=== PATIENT | male | born 1950 | race Caucasian/White ===

== ENCOUNTER 2016-06-30 14:20 | Outpatient (CLI) ==
--- NOTE | 2016-06-30 14:53 | DI ---
EXAM: Three x-rays of the lumbar spine. Comparison: None available. Reason for exam: Back pain. FINDINGS: No acute fracture. The vertebral body heights are relatively well maintained. There is multilevel degenerative disease seen with anterior osteophyte formation and facet hypertrophy. Ther e is a grade 1 retrolithesis of L5 on S1. Impression: Multilevel degenerative disc disease with grade 1 retrolithesis of L5 on S1 and osteophyte formation with facet hypertrophy. No obvious fracture. If clinical suspicion is high, CT imaging may be perf ormed.
== END 2016-06-30 14:21 | disposition home or self-care (01) ==
LOC: RAD 14:20
PROVIDERS: ATTEND Internal Medicine
DX: M54.5 Low back pain (principal)

== ENCOUNTER 2017-01-30 05:38 | Emergency (ER) ==
[2017-01-30 05:57] VITALS: BP 156/90; TEMP 98.8; BMI 37.0
--- NOTE | 2017-01-30 06:38 | ED.PDOC ---
General <PAGE HOSPITALKULDEEP - Last Filed: 01/30/17 07:47> Stated Complaint: Patient has problems with constipation on and off for long time, last week had similar episode, Dr camp, told him to take mag citrate, which did help him. now patient has constipation again. has problems with bowels for the long time, per patient he was started doxepen for that in [place]. Time Seen by Physician: 06:34 Mode of Arrival: Walk-In Information Source: Patient, Family Nursing and Triage Documentation Reviewed and Agree: Yes <ARLEEN WANG - Last Filed: 02/06/17 19:58> ED Provider: Dr. ARLEEN WANG Chief Complaint: Abdominal Pain Primary Care Provider: JODY CAMP GI Complaint Exam - Abdominal Pain Complaint/Exam Onset: Gradual Symptoms Are: Still present Timing: Constant Initial Severity: Mild Current Severity: Mild Location of Pain: Diffuse Character: Reports: Dull, Aching Aggravating: Reports: None Alleviating: Reports: None Associated Signs and Symptoms: Reports: Constipation. Denies: Diaphoresis, Fever, Cough, Chest pain, Dizziness, Back pain, Blood in stool, Dysuria, Urinary frequency, Decreased urine output, Decreased appetite, Discharge, Nausea , Vomiting, Diarrhea, Decreased activity AAA Risk Factors: Reports: None Cardiac Risk Factors: Reports: None Testicular Torsion Risk Factors: Reports: None Surgical Obstruction Risk Factors: Reports: None Abdominal Findings: Absent: Pulsatile mass, Abdominal distention, Unequal femoral pulses, Rebound tenderness Differential Diagnoses: Bowel Obstruction, Constipation, Diverticulitis <ARLEEN WANG - Last Filed: 02/06/17 19:58> Review of Systems - Review Of Systems Constitutional: Reports: No symptoms Eyes: Reports: No symptoms Ears, Nose, Mouth, Throat: Reports: No symptoms Respiratory: Reports: No symptoms Cardiac: Reports: No symptoms GI: Reports: Constipated : Reports: No symptoms Musculoskeletal: Reports: No symptoms Skin: Reports: No symptoms Neurological: Reports: No symptoms Endocrine: Reports: No symptoms Hematologic/Lymphatic: Reports: No symptoms All Other Systems: Reviewed and Negative <ARLEEN WANG - Last Filed: 02/06/17 19:58> Past Medical History - Past Medical History Previously Healthy: Yes Endocrine: Reports: DM 2 Cardiovascular: Reports: Hypertension Respiratory: Reports: None Hematological: Reports: Other (constipation) Gastrointestinal: Reports: None Genitourinary: Reports: None Neuro/Psych: Reports: None Musculoskeletal: Reports: None Cancer: Reports: None - Surgical History General Surgical History: Reports: None - Family History Family History: Reports: None - Social History Smoking Status: Former smoker Hx Substance Use: No Alcohol Screening: Occasionally - Immunizations Tetanus Shot up to Date: No (unsure) <ARLEEN WANG - Last Filed: 02/06/17 19:58> Physical Exam - Physical Exam Appearance: Well-appearing, Obese Eyes: JULEE, EOMI, Conjunctiva clear ENT: Ears normal, Nose normal, Oropharynx normal Respiratory: Airway patent, Breath sounds clear, Breath sounds equal, Respirations nonlabored Cardiovascular: RRR, Pulses normal, No rub, No murmur GI/: Soft, No masses, Bowel sounds normal, No Organomegaly, Tender ( discomfort.) Musculoskeletal: Normal strength, ROM intact, No edema, No calf tenderness Skin: Warm, Dry, Normal color Neurological: Sensation intact, Motor intact, Reflexes intact, Cranial nerves intact, Alert, Oriented Psychiatric: Affect appropriate, Mood appropriate <ARLEEN WANG - Last Filed: 02/06/17 19:58> Physician Notification - Case Discussed Physician Notified: dr camp Time of Notification: 07:47 <KULDEEP XIAO - Last Filed: 01/30/17 07:47> Critical Care Note - Critical Care Note Total Time (mins): 30 <ARLEEN WANG - Last Filed: 02/06/17 19:58> Course - Course Hematology/Chemistry: 01/30/17 06:43 01/30/17 06:43 <KULDEEP XIAO - Last Filed: 01/30/17 07:47> - Course Hematology/Chemistry: 01/30/17 06:43 01/30/17 06:43 <ARLEEN WANG - Last Filed: 02/06/17 19:58> - Course Orders, Labs, Meds: Lab Review 01/30/17 01/30/17 01/30/17 06:43 06:43 07:06 WBC 10.71 H RBC 5.01 Hgb 15.5 Hct 44.3 MCV 88.4 MCH 30.9 MCHC 35.0 RDW Coeff of Mckayla 12.0 Plt Count 220 Immature Gran % (Auto) 0.6 Neut % (Auto) 79.4 Lymph % (Auto) 9.3 L [place] % (Auto) 7.2 Eos % (Auto) 3.0 Baso % (Auto) 0.5 Immature Gran # (Auto) 0.1 Neut # 8.5 H Lymph # 1.0 [place] # 0.8 Eos # 0.3 Baso # 0.1 Sodium 136 Potassium 5.9 H Chloride 102 Carbon Dioxide 26 Anion Gap 13.9 BUN 22 H Creatinine 0.93 Estimated GFR (MDRD) 82.00 BUN/Creatinine Ratio 23.65 Glucose 223 H Calcium 10.3 H Total Bilirubin 0.31 AST 13 L ALT 13 Alkaline Phosphatase 96 Total Protein 7.2 Albumin 2.9 L Globulin 4.3 Albumin/Globulin Ratio 0.67 Urine Color Yellow Urine Clarity Clear Urine pH 5.5 Ur Specific [place] 1.025 Urine Protein Negative Urine Glucose (UA) Trace Urine Ketones Negative Urine Blood Negative Urine Nitrite Negative Urine Bilirubin Negative Urine Urobilinogen 0.2 Ur Leukocyte Esterase Negative Orders Category Date Time Status TRANSFER TO OUTSIDE FACILITY .TO PSYCHIATRIC ( CARE 01/30/17 07:48 Active [facility]) WRITE TRANSFER/SBAR NOTE ONCE CARE 01/30/17 07:48 Completed DISCHARGE ASSESSMENT ONCE DISCHARGE 01/30/17 07:48 Completed WRITE DISCHARGE NOTE ONCE DISCHARGE 01/30/17 07:48 Completed IV [ED IV/MEDIPORT/POWERPORT] .ONCE EMERGENCY 01/30/17 07:42 Active CBC W/ AUTO DIFF Stat LAB 01/30/17 06:43 Completed COMPREHENSIVE METABOLIC PANEL Stat LAB 01/30/17 06:43 Completed UA [URINALYSIS C & S IF INDICATED] Stat LAB 01/30/17 07:06 Completed 0.9 % Sodium Chloride [Saline Flush] MEDS 01/30/17 07:42 Discontinued 1 syr IVF PRN PRN Magnesium Citrate [Citrate of Magnesia] MEDS 01/30/17 06:43 Discontinued 10 oz PO ONCE STA Morphine Sulfate [Morphine 2 mg/ml Syringe] MEDS 01/30/17 07:43 Discontinued 2 mg IVP ONCE STA Sodium Chloride 0.9% [Sodium Chloride] 1,000 ml MEDS 01/30/17 07:42 Discontinued IV 100 mls/hr CT ABDOMEN/PELVIS WO CONTRAST Stat RADS 01/30/17 06:33 Completed Medications Discontinued Medications Generic Name Dose Route Start Last Admin Trade Name Jitendra PRN Reason Stop Dose Admin Sodium Chloride 1,000 mls @ 100 mls/hr 01/30/17 07:42 01/30/17 08:07 Sodium Chloride IV 01/30/17 17:41 100 mls/hr .Q10H STA Administration Magnesium Citrate 10 oz 01/30/17 06:43 01/30/17 07:18 Citrate Of Magnesia PO 01/30/17 06:44 10 oz ONCE STA Administration Morphine Sulfate 2 mg 01/30/17 07:43 01/30/17 08:11 Morphine 2 Mg/Ml Syringe IVP 01/30/17 07:44 2 mg ONCE STA Administration Sodium Chloride 1 syr 01/30/17 07:42 01/30/17 08:07 Saline Flush IVF 1 syr PRN PRN Administration To flush IV Vital Signs: Temp Pulse Resp BP Pulse Ox 01/30/17 05:39 98.8 F 57 L 18 156/90 H 97 Departure - Departure Transfer Form Completed: Yes Disposition Discussed With: Patient, Family <SHILAKULDEEP ROMERO - Last Filed: 01/30/17 07:47> - Departure Time of Disposition: 20:00 Pt referred to PMD for follow-up: Yes Disposition Discussed With: Patient <ARLEEN WANG - Last Filed: 02/06/17 19:58> - Departure Disposition: [facility] Discharge Problem: Abdominal pain, Hyperkalemia Constipation Qualifiers: Constipation type: chronic idiopathic constipation Qualified Code(s): K59.04 - Chronic idiopathic constipation Cholelithiasis Qualifiers: Cholelithiasis location: gallbladder Cholecystitis presence: without cholecystitis Biliary obstruction: without biliary obstruction Qualified Code(s) : K80.20 - Calculus of gallbladder without cholecystitis without obstruction Instructions: Constipation (ED), High Fiber Diet (ED) Condition: Good Additional Instructions: Increase hydration HIgh Fibre diet. f/u with PMD Allergies/Adverse Reactions: Allergies No Known Allergies Allergy (Unverified 01/30/17 05:51) Home Medications: Ambulatory Orders Aspirin [Aspirin EC] 81 mg PO DAILY 01/30/17 Doxepin HCl [Sinequan] 25 mg PO TID 01/30/17 Lisinopril 10 mg PO DAILY 11/11/17 Metformin HCl [Glucophage] 1,000 mg PO DAILY 01/30/17 Metoprolol Tartrate 25 mg PO BID 01/30/17 Pravastatin Sodium 10 mg PO DAILY 01/30/17 Trospium Chloride 20 mg PO BID 01/30/17
[2017-01-30] MEDS ORDERED: CITRATE OF MAGNESIA PO STA (06:43)
[2017-01-30 06:48] LABS: BASOPHILS # (AUTO) 0.1 K/uL (0-0.2); BASOPHILS % (AUTO) 0.5 % (0.0-3.0); EOSINOPHILS # (AUTO) 0.3 K/ul (0.0-0.7); HEMATOCRIT 44.3 % (42.0-52.0); HEMOGLOBIN 15.5 g/dl (14.0-18.0); IMMATURE GRANULOCYTE % (AUTO) 0.6 % (0.0-5.0); LYMPHOCYTES % (AUTO) 9.3 (10.0-50.0); MEAN CORPUSCULAR HEMOGLOBIN 30.9 pg (27.0-31.0); MEAN CORPUSCULAR VOLUME 88.4 fl (80.0-94.0); MONOCYTES # (AUTO) 0.8 K/uL (0.4-2.0); MONOCYTES % (AUTO) 7.2 (0-10); NEUTROPHILS # (AUTO) 8.5 K/ul (2.0-6.9); NEUTROPHILS % (AUTO) 79.4; PLATELET COUNT 220 10^3/uL (140-440); RED BLOOD COUNT 5.01 10^6/ul (4.70-6.10); WHITE BLOOD COUNT 10.71 K/ul (4.2-10.2)
[2017-01-30 07:07] LABS: ALBUMIN 2.9 g/dL (3.4-5.0); ALBUMIN/GLOBULIN RATIO 0.67; ANION GAP 13.9; BILIRUBIN,TOTAL 0.31 mg/dL (0.00-1.20); BUN/CREATININE RATIO 23.65; CALCIUM 10.3 mg/dL (8.2-10.2); CREATININE 0.93 mg/dL (0.60-1.10); POTASSIUM 5.9 mmol/L (3.5-5.1); TOTAL PROTEIN 7.2 g/dL (5.8-8.1)
--- NOTE | 2017-01-30 07:20 | CT ---
EXAM: CT ABDOMEN AND PELVIS HISTORY: Constipation TECHNIQUE: CT abdomen and pelvis without intravenous contrast. Images were reconstructed using 3 mm section thickness. Reformations were prepared. COMPARISON: None FINDINGS: Diagnostic limitations exist without including contrast enhanced images. Liver is within normal limi ts. There is no intrahepatic biliary dilatation. Spleen unremarkable. Gallbladder is mildly disten ded. Several small gallstones are noted. There is a focal 0.45 cm density over the distal aspect of the common bile duct possibly representing a lower common bile duct calculus. No common bile duct d ilatation is seen. 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 Minimal atherosclerotic disease. Moderate fecal retention in the cecum. Otherwise no excessive retention is identified and the bowel gas pattern is normal. Urinary bladder and prostate are normal. There is no ascites. There is a fatty umbilical hernia with a transverse neck of 1.7 cm likely of no current clinical sign ificance. The bones reveal early degenerative disc and facet disease of the lower spine. Lung bases are free of acute infiltrate. No pneumoperitoneum. IMPRESSION: 1. Cholelithiasis with mild gallbladder distension. Cannot exclude a distal common bile duct calc ulus. 2. 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 3. Slight excess fecal retention in the cecum. Otherwise no evidence of constipation.
[2017-01-30 07:34] LABS: BILIRUBIN,URINE Negative (NEGATIVE); KETONES,URINE Negative (NEGATIVE); LEUKOCYTE ESTERASE ,URINE Negative (NEGATIVE); NITRITE,URINE Negative (NEGATIVE); PH,URINE 5.5 (5-9); PROTEIN,URINE Negative (NEGATIVE); URINE, BLOOD Negative (NEGATIVE)
[2017-01-30 07:36] LABS: ADD URINE MICROSCOPIC NO
[2017-01-30] MEDS ORDERED: SODIUM CHLORIDE 1,000 ML IV STA (07:42)
[2017-01-30] MEDS ORDERED: MORPHINE 2 MG/ML SYRINGE IVP STA (07:43)
== END 2017-01-30 08:43 | disposition short-term general hospital (02) ==
LOC: ED 05:38
DX: K59.04 Chronic idiopathic constipation (principal); K80.20 Calculus of gallbladder without cholecystitis without obstruction; E87.5 Hyperkalemia
CPT/HCPCS: 36415; 80053; 81001; 85025; 96375; 99285

== ENCOUNTER 2017-07-24 17:01 | Outpatient (CLI) | END 2017-07-24 17:02 | disposition short-term general hospital (02) | LOC: AMBL 17:01 | PROVIDERS: ATTEND Internal Medicine | DX: M54.5 Low back pain (principal); R20.0 Anesthesia of skin; W19.XXXA Unspecified fall, initial encounter ==